=== PATIENT | female | born 1945 | race Two or more races ===

== ENCOUNTER 2023-01-17 22:15 | Inpatient (IN) | payer OTHER ==
[~2023-01-17] VITALS: Ht 172.7 cm; Wt 89.3 kg
[2023-01-18] MEDS ORDERED: ONDANSETRON HCL 4 MG/2 ML VIAL IV PRN (01:45)
[2023-01-18] MEDS ORDERED: MORPHINE SULFATE INJ 2 MG/ml SYRG IV PRN (01:45)
[2023-01-18] MEDS ORDERED: DOCUSATE SOD 100 MG CAP PO PRN (01:45)
[2023-01-18] MEDS ORDERED: NITROGLYCERIN 0.4 MG SL TAB SL PRN (01:45)
[2023-01-18] MEDS ORDERED: ACETAMINOPHEN 325 MG TAB PO PRN (01:45)
[2023-01-18 02:34] LABS: Basophils # (auto) 0.1 10 ^3/uL (0-0.2); Eosinophils # (auto) 0.2 10 ^3/uL (0-0.8); Hemoglobin 13.1 g/dL (12.2-16.2); Lymphocytes # (auto) 2.2 10 ^3/uL (0.4-5.4); Lymphocytes % (auto) 30.1 % (10.0-50.0); Mean Corpuscular Hemoglobin 26.9 pg (28.0-32.0); Mean Corpuscular Hgb Conc. 32.1 g/dL (32.0-36.0); Neutrophils # (auto) 3.9 10 ^3/uL (1.6-8.6); Neutrophils % (auto) 52.9 % (37.0-80.0); Red Blood Cells 4.88 10^6/uL (4.0-5.20); Red Cell Distribution Width 15.1 % (11.8-14.3); White Blood Cell 7.4 10^3/uL (4.4-10.8)
[2023-01-18] MEDS ORDERED: LEV50T PO (02:44)
[2023-01-18] MEDS ORDERED: MEMA1TAB5 PO (02:48)
[2023-01-18 02:50] LABS: INR 1.02 (0.9-1.15); Partial Thromboplastin Time 56.1 SEC (24.5-34.5)
[2023-01-18] MEDS ORDERED: HEPARIN DRIP/D5W 100UNITS/ML 250 ML IV SCH (03:00)
[2023-01-18] MEDS ORDERED: HEPARIN SODIUM (PORCINE) 5000 UNITS/ML 1ML VIAL IV ONE ×2 (03:00)
[2023-01-18 05:00] VITALS: BP 116/62
[2023-01-18 05:32] LABS: Basophils # (auto) 0.1 10 ^3/uL (0-0.2); Basophils % (auto) 1.1 % (0.0-2.0); Eosinophils # (auto) 0.2 10 ^3/uL (0-0.8); Hematocrit 38.7 % (36.0-46.0); Hemoglobin 12.8 g/dL (12.2-16.2); Mean Corpuscular Hemoglobin 27.2 pg (28.0-32.0); Mean Corpuscular Hgb Conc. 33.2 g/dL (32.0-36.0); Mean Corpuscular Volume 81.9 fL (80.0-100.0); Monocytes # (auto) 0.8 10 ^3/uL (0-1.3); Monocytes % (auto) 11.7 % (0.0-12.0); Neutrophils # (auto) 3.5 10 ^3/uL (1.6-8.6); Neutrophils % (auto) 54.2 % (37.0-80.0); Red Blood Cells 4.72 10^6/uL (4.0-5.20); White Blood Cell 6.5 10^3/uL (4.4-10.8)
[2023-01-18 05:43] LABS: Potassium 4.1 mmol/L (3.5-5.1)
[2023-01-18 05:50] LABS: BUN/Creatinine Ratio 16.7 (10.0-20.0); Calcium 8.8 mg/dL (8.5-10.1)
[2023-01-18] MEDS: HEPARIN DRIP/D5W 100UNITS/ML 250 ML IV SCH (06:07)
[2023-01-18 06:21] LABS: INR 1.01 (0.9-1.15); Partial Thromboplastin Time 28.1 SEC (24.5-34.5)
[2023-01-18 09:00] VITALS: BP 125/70
[2023-01-18] MEDS: PANTOPRAZOLE 40 MG/10 ML VIAL INJ IV SCH (11:57)
[2023-01-18 12:04] LABS: INR 1.03 (0.9-1.15); Partial Thromboplastin Time 53.8 SEC (24.5-34.5)
[2023-01-18] MEDS: PIPERACILLIN-TAZOB 3.375GM 100 ML IV SCH ×2 (14:17→22:10)
[2023-01-18 17:00] VITALS: BP 119/74
[2023-01-18 17:51] LABS: INR 1.02 (0.9-1.15); Partial Thromboplastin Time 65.7 SEC (24.5-34.5)
[2023-01-18 22:00] VITALS: BP 135/81
[2023-01-19 00:29] LABS: INR 1.04 (0.9-1.15)
[2023-01-19 00:41] LABS: Partial Thromboplastin Time 101.2 SEC (24.5-34.5)
[2023-01-19] MEDS: HEPARIN DRIP/D5W 100UNITS/ML 250 ML IV SCH ×2 (00:55→23:50)
[2023-01-19] MEDS: PIPERACILLIN-TAZOB 3.375GM 100 ML IV SCH ×4 (01:30→21:00)
[2023-01-19 05:00] VITALS: BP 121/77
[2023-01-19 08:50] LABS: Basophils % (auto) 0.9 % (0.0-2.0); Eosinophils # (auto) 0.2 10 ^3/uL (0-0.8); Eosinophils % (auto) 3.3 % (0.0-7.0); Lymphocytes # (auto) 1.4 10 ^3/uL (0.4-5.4); Mean Corpuscular Hemoglobin 26.8 pg (28.0-32.0); Monocytes # (auto) 0.5 10 ^3/uL (0-1.3)
[2023-01-19 08:52] LABS: Basophils # (auto) 0 10 ^3/uL (0-0.2); Hematocrit 43.5 % (36.0-46.0); Hemoglobin 14.1 g/dL (12.2-16.2); Lymphocytes % (auto) 24.3 % (10.0-50.0); Mean Corpuscular Hgb Conc. 32.4 g/dL (32.0-36.0); Mean Corpuscular Volume 82.7 fL (80.0-100.0); Monocytes % (auto) 9.2 % (0.0-12.0); Neutrophils # (auto) 3.6 10 ^3/uL (1.6-8.6); Neutrophils % (auto) 62.3 % (37.0-80.0); Nucleated Red Blood Cells % 0.2 %; Red Blood Cells 5.26 10^6/uL (4.0-5.20); Red Cell Distribution Width 15.5 % (11.8-14.3); White Blood Cell 5.7 10^3/uL (4.4-10.8)
[2023-01-19 08:57] LABS: INR 1.03 (0.9-1.15); Partial Thromboplastin Time 61.4 SEC (24.5-34.5)
[2023-01-19 09:00] VITALS: BP 122/76
[2023-01-19 09:22] LABS: Potassium 4.2 mmol/L (3.5-5.1)
[2023-01-19] MEDS: PANTOPRAZOLE 40 MG/10 ML VIAL INJ IV SCH (10:26)
[2023-01-19 13:00] VITALS: BP_SYST 104; BP_SYST 133; BP_DIAS 56; BP_DIAS 64
[2023-01-19 15:37] LABS: INR 1.04 (0.9-1.15); Partial Thromboplastin Time 54.2 SEC (24.5-34.5)
[2023-01-19 17:00] VITALS: BP 112/63
[2023-01-19 20:20] LABS: INR 1.04 (0.9-1.15); Partial Thromboplastin Time 50.5 SEC (24.5-34.5)
[2023-01-19 21:46] VITALS: BP 100/60
[2023-01-20] MEDS: PIPERACILLIN-TAZOB 3.375GM 100 ML IV SCH ×2 (02:35→07:51)
[2023-01-20 02:49] LABS: INR 1.04 (0.9-1.15); Partial Thromboplastin Time 60.9 SEC (24.5-34.5)
[2023-01-20 04:48] VITALS: BP 98/60
[2023-01-20 07:30] LABS: Basophils # (auto) 0.1 10 ^3/uL (0-0.2); Eosinophils # (auto) 0.2 10 ^3/uL (0-0.8); Eosinophils % (auto) 4.2 % (0.0-7.0); Hematocrit 40.7 % (36.0-46.0); Hemoglobin 13.3 g/dL (12.2-16.2); Lymphocytes # (auto) 1.7 10 ^3/uL (0.4-5.4); Lymphocytes % (auto) 30.2 % (10.0-50.0); Mean Corpuscular Hgb Conc. 32.6 g/dL (32.0-36.0); Mean Corpuscular Volume 83.1 fL (80.0-100.0); Monocytes # (auto) 0.7 10 ^3/uL (0-1.3); Monocytes % (auto) 11.9 % (0.0-12.0); Neutrophils # (auto) 2.9 10 ^3/uL (1.6-8.6); Neutrophils % (auto) 52.7 % (37.0-80.0); Nucleated Red Blood Cells % 0.1 %; Red Cell Distribution Width 15.3 % (11.8-14.3); White Blood Cell 5.5 10^3/uL (4.4-10.8)
[2023-01-20 07:38] LABS: Calcium 8.8 mg/dL (8.5-10.1); Potassium 4.2 mmol/L (3.5-5.1)
[2023-01-20 07:40] LABS: BUN/Creatinine Ratio 7.8 (10.0-20.0)
[2023-01-20 09:00] VITALS: BP 102/56
[2023-01-20] MEDS: HEPARIN DRIP/D5W 100UNITS/ML 250 ML IV SCH (09:08)
[2023-01-20 13:00] VITALS: BP 122/74
[2023-01-20] MEDS ORDERED: APIX5TAB PO (17:23)
[2023-01-20] MEDS ORDERED: AUG875T PO (17:23)
[2023-01-20] MEDS ORDERED: AMOXICILLIN/CLAVUL 875 MG TAB PO SCH (22:00)
[2023-01-20] MEDS ORDERED: APIXABAN 5 MG TAB PO SCH (22:00)
== END 2023-01-20 17:00 | disposition left against medical advice (07) | DRG 301 ==
LOC: TELE-EAST 01-18 01:15 → INTOOBSV 01-18 01:15 → TELE-WESTW 01-18 01:50 → OBSVTOIN 01-20 02:21
PROVIDERS: ADMIT Nurse Practitioner Family; ATTEND Internal Medicine
DX: I82.411 Acute embolism and thrombosis of right femoral vein (principal); F03.C0 Unspecified dementia, severe, without behavioral disturbance, psychotic disturbance, mood disturbance, and anxiety; K62.89 Other specified diseases of anus and rectum; Z79.01 Long term (current) use of anticoagulants; Z91.148 Patient's other noncompliance with medication regimen for other reason; Z53.29 Procedure and treatment not carried out because of patient's decision for other reasons
CPT/HCPCS: 36415; 80048; 85025; 85610; 85730; 87045; 87081; 87177; 87427; 97110; 97116; 97163; 97530; C9113; G0378; J2543

== ENCOUNTER 2023-01-27 16:09 | Inpatient (IN) | payer OTHER ==
[~2023-01-27] VITALS: Ht 175.3 cm; Wt 75.0 kg
[~2023-01-27 16:09] MED LIST: APIX5TAB PO; AUG875T PO; LEV50T PO; MEMA1TAB5 PO
[2023-01-27 16:54] LABS: Basophils # (auto) 0.1 10 ^3/uL (0-0.2); Basophils % (auto) 0.8 % (0.0-2.0); Eosinophils # (auto) 0.2 10 ^3/uL (0-0.8); Lymphocytes # (auto) 1.8 10 ^3/uL (0.4-5.4); Monocytes # (auto) 0.9 10 ^3/uL (0-1.3); Red Blood Cells 5.28 10^6/uL (4.0-5.20)
[2023-01-27 16:56] LABS: Eosinophils % (auto) 2.6 % (0.0-7.0); Hematocrit 43.3 % (36.0-46.0); Lymphocytes % (auto) 24.9 % (10.0-50.0); Mean Corpuscular Hemoglobin 26.5 pg (28.0-32.0); Mean Corpuscular Hgb Conc. 32.3 g/dL (32.0-36.0); Monocytes % (auto) 11.9 % (0.0-12.0); Neutrophils # (auto) 4.4 10 ^3/uL (1.6-8.6); Neutrophils % (auto) 59.8 % (37.0-80.0); Nucleated Red Blood Cells % 0.1 %; White Blood Cell 7.3 10^3/uL (4.4-10.8)
[2023-01-27 17:13] LABS: INR 1.19 (0.9-1.15); Partial Thromboplastin Time 45.9 SEC (24.5-34.5)
[2023-01-27 17:41] LABS: BUN/Creatinine Ratio 19.2 (10.0-20.0); Bilirubin, Total 0.5 mg/dL (0.2-1.0); Calcium 8.7 mg/dL (8.5-10.1); Potassium 4.2 mmol/L (3.5-5.1)
[2023-01-27 17:42] LABS: Albumin 3.5 g/dL (3.4-5.0); Total Protein 6.8 g/dL (6.4-8.2)
[2023-01-27] MEDS ORDERED: ONDANSETRON HCL 4 MG/2 ML VIAL IV PRN (23:30)
[2023-01-27] MEDS ORDERED: ACETAMINOPHEN 325 MG TAB PO PRN (23:30)
[2023-01-27] MEDS ORDERED: PANTOPRAZOLE 40 MG/10 ML VIAL INJ IV ONE (23:30)
[2023-01-28 01:30] LABS: Hematocrit 40.6 % (36.0-46.0); Hemoglobin 13.2 g/dL (12.2-16.2)
[2023-01-28] MEDS ORDERED: TEMAZEPAM 15 MG CAP PO ONE (02:45)
[2023-01-28 06:16] LABS: Basophils # (auto) 0 10 ^3/uL (0-0.2); Basophils % (auto) 0.7 % (0.0-2.0); Eosinophils # (auto) 0.2 10 ^3/uL (0-0.8); Eosinophils % (auto) 2.5 % (0.0-7.0); Hematocrit 39.7 % (36.0-46.0); Hemoglobin 13.1 g/dL (12.2-16.2); Lymphocytes # (auto) 1.6 10 ^3/uL (0.4-5.4); Lymphocytes % (auto) 23.9 % (10.0-50.0); Mean Corpuscular Hemoglobin 27.2 pg (28.0-32.0); Mean Corpuscular Hgb Conc. 32.9 g/dL (32.0-36.0); Mean Corpuscular Volume 82.6 fL (80.0-100.0); Monocytes # (auto) 0.8 10 ^3/uL (0-1.3); Monocytes % (auto) 11.9 % (0.0-12.0); Nucleated Red Blood Cells % 0.1 %; Red Blood Cells 4.81 10^6/uL (4.0-5.20); Red Cell Distribution Width 14.9 % (11.8-14.3); White Blood Cell 6.5 10^3/uL (4.4-10.8)
[2023-01-28] MEDS: LEVOTHYROXINE SODIUM 25 MCG TAB PO SCH (06:30)
[2023-01-28 06:41] LABS: Potassium 3.8 mmol/L (3.5-5.1)
[2023-01-28 06:50] LABS: BUN/Creatinine Ratio 21.6 (10.0-20.0); Bilirubin, Total 0.6 mg/dL (0.2-1.0); Calcium 8.6 mg/dL (8.5-10.1); Total Protein 6.5 g/dL (6.4-8.2)
[2023-01-28] MEDS ORDERED: PANTOPRAZOLE 40 MG/10 ML VIAL INJ IV SCH (10:00)
[2023-01-28] MEDS: MEMANTINE HCL 5 MG TAB PO SCH ×2 (10:05→21:33)
[2023-01-28 20:00] VITALS: BP 110/68
[2023-01-28] MEDS: PANTOPRAZOLE 40 MG/10 ML VIAL INJ IV SCH (21:33)
[2023-01-28 22:00] VITALS: BP 110/68
[2023-01-28 22:21] LABS: Basophils # (auto) 0.1 10 ^3/uL (0-0.2); Basophils % (auto) 0.9 % (0.0-2.0); Eosinophils # (auto) 0.1 10 ^3/uL (0-0.8); Eosinophils % (auto) 2.1 % (0.0-7.0); Hematocrit 38.9 % (36.0-46.0); Hemoglobin 12.8 g/dL (12.2-16.2); Lymphocytes # (auto) 1.9 10 ^3/uL (0.4-5.4); Lymphocytes % (auto) 28.8 % (10.0-50.0); Mean Corpuscular Hemoglobin 27.2 pg (28.0-32.0); Mean Corpuscular Hgb Conc. 32.8 g/dL (32.0-36.0); Mean Corpuscular Volume 82.9 fL (80.0-100.0); Monocytes # (auto) 0.8 10 ^3/uL (0-1.3); Neutrophils # (auto) 3.6 10 ^3/uL (1.6-8.6); Neutrophils % (auto) 55.2 % (37.0-80.0); Nucleated Red Blood Cells % 0.1 %; Red Cell Distribution Width 14.5 % (11.8-14.3); White Blood Cell 6.5 10^3/uL (4.4-10.8)
[2023-01-29] VITALS (8 sets, daily range): BP systolic 95–130; BP diastolic 54–77
[2023-01-29] MEDS: LEVOTHYROXINE SODIUM 25 MCG TAB PO SCH (06:33)
[2023-01-29 10:17] LABS: Basophils # (auto) 0.1 10 ^3/uL (0-0.2); Basophils % (auto) 0.9 % (0.0-2.0); Eosinophils # (auto) 0.1 10 ^3/uL (0-0.8); Eosinophils % (auto) 1.9 % (0.0-7.0); Hematocrit 43.1 % (36.0-46.0); Hemoglobin 14.1 g/dL (12.2-16.2); Lymphocytes # (auto) 1.4 10 ^3/uL (0.4-5.4); Lymphocytes % (auto) 22.7 % (10.0-50.0); Mean Corpuscular Hgb Conc. 32.6 g/dL (32.0-36.0); Mean Corpuscular Volume 82.6 fL (80.0-100.0); Monocytes # (auto) 0.6 10 ^3/uL (0-1.3); Monocytes % (auto) 10.2 % (0.0-12.0); Neutrophils # (auto) 3.9 10 ^3/uL (1.6-8.6); Neutrophils % (auto) 64.3 % (37.0-80.0); Red Blood Cells 5.21 10^6/uL (4.0-5.20); Red Cell Distribution Width 14.8 % (11.8-14.3); White Blood Cell 6.1 10^3/uL (4.4-10.8)
[2023-01-29] MEDS: PANTOPRAZOLE 40 MG/10 ML VIAL INJ IV SCH ×2 (10:55→22:11)
[2023-01-29] MEDS: MEMANTINE HCL 5 MG TAB PO SCH ×2 (10:55→22:11)
[2023-01-29] MEDS ORDERED: HEPARIN DRIP/D5W 100UNITS/ML 250 ML IV SCH (12:15)
[2023-01-29] MEDS ORDERED: HEPARIN SODIUM (PORCINE) 5000 UNITS/ML 1ML VIAL IV ONE (12:15)
[2023-01-29] MEDS ORDERED: IODIXANOL 320MG/ML 100ML BTL IV ONE (13:28)
[2023-01-29] MEDS ORDERED: LIDOCAINE 2%HCL (LOCAL ANESTH.) INJ 20ML MDV ONE (13:28)
[2023-01-29] MEDS ORDERED: fentaNYL CITRATE 100 MCG/2 ML VL ONE (13:36)
[2023-01-29] MEDS ORDERED: MIDAZOLAM HCL 2MG/2ML 2ml VIAL (1mg/ml) ONE (13:36)
[2023-01-29 13:42] LABS: INR 1.04 (0.9-1.15); Partial Thromboplastin Time 29.6 SEC (24.5-34.5)
[2023-01-29] MEDS: SODIUM CHLOR 0.9% PF (SALINE LOCK) 10ML VIAL/SYR IV SCH (22:11)
[2023-01-29 22:50] LABS: Basophils # (auto) 0 10 ^3/uL (0-0.2); Basophils % (auto) 0.6 % (0.0-2.0); Eosinophils # (auto) 0.1 10 ^3/uL (0-0.8); Eosinophils % (auto) 1.4 % (0.0-7.0); Hematocrit 40.6 % (36.0-46.0); Hemoglobin 13.3 g/dL (12.2-16.2); Lymphocytes # (auto) 1.8 10 ^3/uL (0.4-5.4); Lymphocytes % (auto) 22.8 % (10.0-50.0); Mean Corpuscular Hemoglobin 27.3 pg (28.0-32.0); Mean Corpuscular Hgb Conc. 32.8 g/dL (32.0-36.0); Mean Corpuscular Volume 83.1 fL (80.0-100.0); Monocytes % (auto) 12.4 % (0.0-12.0); Neutrophils # (auto) 4.9 10 ^3/uL (1.6-8.6); Neutrophils % (auto) 62.8 % (37.0-80.0); Nucleated Red Blood Cells % 0.2 %; Red Blood Cells 4.89 10^6/uL (4.0-5.20); Red Cell Distribution Width 15.1 % (11.8-14.3); White Blood Cell 7.8 10^3/uL (4.4-10.8)
[2023-01-30 05:00] VITALS: BP 109/58
[2023-01-30] MEDS: LEVOTHYROXINE SODIUM 25 MCG TAB PO SCH (05:49)
[2023-01-30] MEDS: SODIUM CHLOR 0.9% PF (SALINE LOCK) 10ML VIAL/SYR IV SCH ×3 (05:52→22:46)
[2023-01-30 08:00] VITALS: BP 96/62
[2023-01-30 10:36] LABS: Basophils # (auto) 0.1 10 ^3/uL (0-0.2); Basophils % (auto) 0.9 % (0.0-2.0); Eosinophils # (auto) 0.1 10 ^3/uL (0-0.8); Eosinophils % (auto) 2.5 % (0.0-7.0); Hematocrit 41.3 % (36.0-46.0); Hemoglobin 13.5 g/dL (12.2-16.2); Lymphocytes # (auto) 1.3 10 ^3/uL (0.4-5.4); Lymphocytes % (auto) 22.4 % (10.0-50.0); Mean Corpuscular Hgb Conc. 32.7 g/dL (32.0-36.0); Mean Corpuscular Volume 82.6 fL (80.0-100.0); Monocytes # (auto) 0.8 10 ^3/uL (0-1.3); Monocytes % (auto) 12.7 % (0.0-12.0); Neutrophils # (auto) 3.7 10 ^3/uL (1.6-8.6); Neutrophils % (auto) 61.5 % (37.0-80.0); Red Cell Distribution Width 14.9 % (11.8-14.3)
[2023-01-30] MEDS: PANTOPRAZOLE 40 MG/10 ML VIAL INJ IV SCH ×2 (11:00→22:45)
[2023-01-30] MEDS: MEMANTINE HCL 5 MG TAB PO SCH ×2 (11:00→22:47)
[2023-01-30] MEDS ORDERED: FLUMAZENIL 0.1 MG/ML INJ 10ML MDV IV ONE (14:41)
[2023-01-30] MEDS ORDERED: SODIUM CHLORIDE LOCK 10 ML ONE (14:41)
[2023-01-30] MEDS ORDERED: NALOXONE HCL 0.4 MG/ML VIAL ONE (14:41)
[2023-01-30] MEDS ORDERED: fentaNYL CITRATE 100 MCG/2 ML VL ONE (14:42)
[2023-01-30] MEDS ORDERED: LIDOCAINE VISCOUS 2% 15ML UD ONE (14:42)
[2023-01-30] MEDS ORDERED: MIDAZOLAM HCL 5 MG/ML-1ML VIAL ONE (14:42)
[2023-01-30] MEDS ORDERED: diphenhdrAMINE HCL 50 MG/1 ML VL ONE (14:42)
[2023-01-30] MEDS ORDERED: APIX5TAB PO (19:46)
[2023-01-30] MEDS ORDERED: PANT40T PO (19:46)
[2023-01-30 22:13] LABS: Basophils # (auto) 0.1 10 ^3/uL (0-0.2); Hemoglobin 13.8 g/dL (12.2-16.2); Mean Corpuscular Volume 82.7 fL (80.0-100.0); White Blood Cell 7.2 10^3/uL (4.4-10.8)
[2023-01-30 22:15] LABS: Basophils % (auto) 0.9 % (0.0-2.0); Eosinophils # (auto) 0.2 10 ^3/uL (0-0.8); Eosinophils % (auto) 2.5 % (0.0-7.0); Hematocrit 42.4 % (36.0-46.0); Lymphocytes % (auto) 27.4 % (10.0-50.0); Mean Corpuscular Hemoglobin 26.8 pg (28.0-32.0); Mean Corpuscular Hgb Conc. 32.4 g/dL (32.0-36.0); Monocytes % (auto) 14.1 % (0.0-12.0); Neutrophils % (auto) 55.1 % (37.0-80.0); Red Blood Cells 5.13 10^6/uL (4.0-5.20); Red Cell Distribution Width 14.7 % (11.8-14.3)
[2023-01-30] MEDS: APIXABAN 5 MG TAB PO SCH (22:46)
[2023-01-31 05:00] VITALS: BP 92/62
[2023-01-31] MEDS: SODIUM CHLOR 0.9% PF (SALINE LOCK) 10ML VIAL/SYR IV SCH ×2 (06:39→14:00)
[2023-01-31] MEDS: LEVOTHYROXINE SODIUM 25 MCG TAB PO SCH (06:40)
[2023-01-31 09:53] VITALS: BP 102/61
[2023-01-31] MEDS: PANTOPRAZOLE 40 MG/10 ML VIAL INJ IV SCH ×2 (10:00→11:04)
[2023-01-31 10:04] VITALS: BP 102/61
[2023-01-31 10:34] LABS: Basophils # (auto) 0.1 10 ^3/uL (0-0.2); Basophils % (auto) 0.8 % (0.0-2.0); Eosinophils # (auto) 0.2 10 ^3/uL (0-0.8); Eosinophils % (auto) 2.2 % (0.0-7.0); Hematocrit 40.8 % (36.0-46.0); Hemoglobin 13.4 g/dL (12.2-16.2); Lymphocytes # (auto) 1.6 10 ^3/uL (0.4-5.4); Lymphocytes % (auto) 20.5 % (10.0-50.0); Mean Corpuscular Hemoglobin 27.2 pg (28.0-32.0); Mean Corpuscular Hgb Conc. 32.8 g/dL (32.0-36.0); Mean Corpuscular Volume 82.8 fL (80.0-100.0); Monocytes # (auto) 1.1 10 ^3/uL (0-1.3); Monocytes % (auto) 13.8 % (0.0-12.0); Neutrophils % (auto) 62.7 % (37.0-80.0); Nucleated Red Blood Cells % 0.1 %; Red Blood Cells 4.93 10^6/uL (4.0-5.20); Red Cell Distribution Width 15.1 % (11.8-14.3); White Blood Cell 7.9 10^3/uL (4.4-10.8)
[2023-01-31] MEDS: APIXABAN 5 MG TAB PO SCH (11:04)
[2023-01-31] MEDS: MEMANTINE HCL 5 MG TAB PO SCH (11:04)
[2023-01-31 14:15] VITALS: BP 111/59
[2023-01-31 15:25] VITALS: BP 102/61
== END 2023-01-31 15:55 | disposition hospice, home (50) | DRG 378 ==
LOC: ER 16:09 → OVERFLOW 23:31 → EAST 01-28 17:56
PROVIDERS: ADMIT Nurse Practitioner; ATTEND Internal Medicine
PROC: 06H03DZ Insertion of Intraluminal Device into Inferior Vena Cava, Percutaneous Approach (ICD-10-PCS; 2023-01-29)
PROC: B519YZZ Fluoroscopy of Inferior Vena Cava using Other Contrast (ICD-10-PCS; 2023-01-29)
PROC: B549ZZA Ultrasonography of Inferior Vena Cava, Guidance (ICD-10-PCS; 2023-01-29)
PROC: 0DB68ZX Excision of Stomach, Via Natural or Artificial Opening Endoscopic, Diagnostic (ICD-10-PCS; 2023-01-30)
PROC: 0DB98ZX Excision of Duodenum, Via Natural or Artificial Opening Endoscopic, Diagnostic (ICD-10-PCS; principal; 2023-01-30 15:40)
DX: K29.71 Gastritis, unspecified, with bleeding (principal); D68.9 Coagulation defect, unspecified; I82.411 Acute embolism and thrombosis of right femoral vein; N17.9 Acute kidney failure, unspecified; E03.9 Hypothyroidism, unspecified; K44.9 Diaphragmatic hernia without obstruction or gangrene; F03.C0 Unspecified dementia, severe, without behavioral disturbance, psychotic disturbance, mood disturbance, and anxiety; Z79.01 Long term (current) use of anticoagulants; Z86.718 Personal history of other venous thrombosis and embolism
CPT/HCPCS: 36415; 37191; 37619; 43239; 74176; 76937; 80053; 82270; 85014; 85018; 85025; 85610; 85730; 86850; 86900; 86901; 93005; 93971; 96374; 96376; 99152; 99153; C1894; C9113; G0378; J2250; Q9967

== ENCOUNTER 2023-02-04 19:04 | Inpatient (IN) | payer OTHER ==
[~2023-02-04] VITALS: Ht 175.3 cm; Wt 75.2 kg
[~2023-02-04 19:04] MED LIST changes: -AUG875T PO; +PANT40T PO
[2023-02-04 20:19] LABS: Eosinophils # (auto) 0.2 10 ^3/uL (0-0.8); Nucleated Red Blood Cells % 0.1 %
[2023-02-04 20:22] LABS: Basophils # (auto) 0.1 10 ^3/uL (0-0.2); Basophils % (auto) 0.8 % (0.0-2.0); Hematocrit 39.4 % (36.0-46.0); Lymphocytes # (auto) 2.5 10 ^3/uL (0.4-5.4); Lymphocytes % (auto) 31.8 % (10.0-50.0); Mean Corpuscular Hemoglobin 26.9 pg (28.0-32.0); Mean Corpuscular Hgb Conc. 32.9 g/dL (32.0-36.0); Mean Corpuscular Volume 81.9 fL (80.0-100.0); Monocytes # (auto) 0.9 10 ^3/uL (0-1.3); Monocytes % (auto) 11.2 % (0.0-12.0); Neutrophils # (auto) 4.2 10 ^3/uL (1.6-8.6); Neutrophils % (auto) 54.2 % (37.0-80.0); Red Blood Cells 4.81 10^6/uL (4.0-5.20); Red Cell Distribution Width 15.1 % (11.8-14.3); White Blood Cell 7.8 10^3/uL (4.4-10.8)
[2023-02-04 20:42] LABS: INR 0.98 (0.9-1.15); Partial Thromboplastin Time 26.8 SEC (24.5-34.5)
[2023-02-04] MEDS ORDERED: SODIUM CHLORIDE 0.9% 500 ML IV ONE (21:15)
[2023-02-04 21:28] LABS: Albumin 3.4 g/dL (3.4-5.0); Calcium 9.1 mg/dL (8.5-10.1)
[2023-02-04] MEDS ORDERED: ONDANSETRON HCL 4 MG/2 ML VIAL IV PRN (21:30)
[2023-02-04] MEDS ORDERED: PANTOPRAZOLE 40 MG/10 ML VIAL INJ IV ONE (21:30)
[2023-02-04 21:33] LABS: BUN/Creatinine Ratio 19.4 (10.0-20.0); Bilirubin, Total 0.4 mg/dL (0.2-1.0)
[2023-02-04 22:09] LABS: Hematocrit 40.4 % (36.0-46.0)
[2023-02-04 22:30] VITALS: PULSE 58; RESP 16; O2SAT 100
[2023-02-05] MEDS: MEMANTINE HCL 5 MG TAB PO SCH ×3 (00:44→22:02)
[2023-02-05 07:49] LABS: Basophils # (auto) 0 10 ^3/uL (0-0.2); Basophils % (auto) 0.7 % (0.0-2.0); Eosinophils # (auto) 0.1 10 ^3/uL (0-0.8); Eosinophils % (auto) 2.9 % (0.0-7.0); Hematocrit 36.5 % (36.0-46.0); Hemoglobin 11.8 g/dL (12.2-16.2); Lymphocytes # (auto) 1.4 10 ^3/uL (0.4-5.4); Lymphocytes % (auto) 26.6 % (10.0-50.0); Mean Corpuscular Hemoglobin 27.3 pg (28.0-32.0); Mean Corpuscular Hgb Conc. 32.4 g/dL (32.0-36.0); Mean Corpuscular Volume 84.1 fL (80.0-100.0); Monocytes # (auto) 0.7 10 ^3/uL (0-1.3); Monocytes % (auto) 13.1 % (0.0-12.0); Neutrophils # (auto) 2.9 10 ^3/uL (1.6-8.6); Neutrophils % (auto) 56.7 % (37.0-80.0); Red Blood Cells 4.33 10^6/uL (4.0-5.20); White Blood Cell 5.1 10^3/uL (4.4-10.8)
[2023-02-05] MEDS: LEVOTHYROXINE SODIUM 25 MCG TAB PO SCH (07:53)
[2023-02-05 08:00] VITALS: PULSE 60; RESP 14; O2SAT 97
[2023-02-05 08:07] LABS: Potassium 3.6 mmol/L (3.5-5.1)
[2023-02-05 08:14] LABS: Albumin 2.8 g/dL (3.4-5.0); BUN/Creatinine Ratio 18.6 (10.0-20.0); Bilirubin, Total 0.5 mg/dL (0.2-1.0); Calcium 8.4 mg/dL (8.5-10.1); Total Protein 5.8 g/dL (6.4-8.2)
[2023-02-05] MEDS: PANTOPRAZOLE 40 MG/10 ML VIAL INJ IV SCH (10:57)
[2023-02-05 14:00] VITALS: BP 100/62; PULSE 56; RESP 16; TEMP 98; O2SAT 96
[2023-02-05 16:36] VITALS: BP 101/58; PULSE 60; RESP 20; TEMP 98.3; O2SAT 96
[2023-02-05 20:00] VITALS: RESP 17; O2SAT 96
[2023-02-05 22:00] VITALS: BP 123/66; PULSE 62; RESP 18; TEMP 98.3; O2SAT 98
[2023-02-06 05:00] VITALS: BP 103/61; PULSE 65; RESP 18; TEMP 97.6; O2SAT 95
[2023-02-06 06:01] LABS: Hematocrit 37.2 % (36.0-46.0); Hemoglobin 12.3 g/dL (12.2-16.2)
[2023-02-06] MEDS: LEVOTHYROXINE SODIUM 25 MCG TAB PO SCH (06:22)
[2023-02-06 08:00] VITALS: BP 113/66; PULSE 56; RESP 16; TEMP 98; O2SAT 98
[2023-02-06 09:00] VITALS: BP 113/66; PULSE 56; RESP 16; TEMP 98.2; O2SAT 98
[2023-02-06] MEDS: PANTOPRAZOLE 40 MG/10 ML VIAL INJ IV SCH ×2 (09:36→09:42)
[2023-02-06] MEDS: MEMANTINE HCL 5 MG TAB PO SCH (09:37)
[2023-02-06 11:52] LABS: Hematocrit 38.3 % (36.0-46.0); Hemoglobin 12.4 g/dL (12.2-16.2)
[2023-02-06 13:00] VITALS: BP 122/71; PULSE 61; RESP 18; TEMP 98; O2SAT 97
[2023-02-06 15:28] VITALS: BP 113/66; PULSE 58; RESP 17; TEMP 98.1; O2SAT 98
[2023-02-06 17:00] VITALS: BP 115/64; PULSE 58; RESP 18; TEMP 98.1; O2SAT 98
== END 2023-02-06 17:40 | disposition hospice, home (50) | DRG 392 ==
LOC: ER 19:04 → OVERFLOW 21:34 → CENTRAL 02-05 14:40
PROVIDERS: ADMIT Nurse Practitioner; ATTEND Internal Medicine
DX: K52.89 Other specified noninfective gastroenteritis and colitis (principal); K92.2 Gastrointestinal hemorrhage, unspecified; I82.401 Acute embolism and thrombosis of unspecified deep veins of right lower extremity; E03.9 Hypothyroidism, unspecified; D64.9 Anemia, unspecified; F03.90 Unspecified dementia, unspecified severity, without behavioral disturbance, psychotic disturbance, mood disturbance, and anxiety; Z79.01 Long term (current) use of anticoagulants; Z86.718 Personal history of other venous thrombosis and embolism; Z95.828 Presence of other vascular implants and grafts; K56.41 Fecal impaction
CPT/HCPCS: 36415; 74176; 76775; 80053; 85014; 85018; 85025; 85610; 85730; 86850; 86900; 86901; C9113; G0378